=== PATIENT | male | born 1950 | race Caucasian/White ===

== ENCOUNTER 2020-05-12 16:19 | Emergency (ER) | payer OTHER ==
[~2020-05-12 16:19] MED LIST: Iopamidol-370 76% 500 ML 1 ML ONE
[2020-05-12 17:02] LABS: #Eosinphils 0.1 thou/uL (0.0-0.7); #Lymphocytes 1.4 thou/uL (1.20-3.40); #Monocytes 0.6 thou/uL (0.11-0.59); #Neutrophils 4.9 thou/uL (1.40-6.50); %Basophils 0.2 % (0.0-1.0); %Eosinophils 1.8 % (0.0-10.0); %Lymphocytes 20.2 % (21.0-51.0); %Neutrophils 68.8 % (42.0-75.0); Hemoglobin 14.4 g/dL (14.0-18.0); Mean Corpuscular HGB CONC 33.9 g/dL (32.0-36.0); Mean Corpuscular Hemoglobin 30.8 pg (27.0-31.0); Platelet Count 221 thou/uL (130-400); RBC Distribution Width 12.3 % (11.5-14.5); Red Blood Cell (RBC) Count 4.68 mill/uL (4.70-6.10); White Blood Cell (WBC) Count 7.1 thou/uL (4.8-10.8)
[2020-05-12 17:18] LABS: CRP (Inflammatory) 0.84 mg/dL (= or < 0.5); Magnesium 2.1 mg/dL (1.6-2.6)
--- NOTE | 2020-05-12 17:18 | RAD ---
XR Knee Lt 4 View STANDARD History: Pain Comparison: None. Findings: No acute fracture or malalignment. No significant joint effusion. Minimal enthesopathic changes of the quadriceps tendon. Impression: No acute osseous abnormality.
[2020-05-12 17:19] LABS: ALT (SGPT) 21 U/L (8-55); AST (SGOT) 14 U/L (5-34); Albumin 4.2 g/dL (3.4-4.8); Alkaline Phosphatase 76 U/L (40-110); Anion Gap 15 mmol/L (10-20); BUN (Urea Nitrogen) 19 mg/dL (8.4-25.7); Bilirubin, Total 0.3 mg/dL (0.2-1.2); Calc. Creatinine Clearance 0 mL/min (70-130); Calcium 8.9 mg/dL (7.8-10.44); Carbon Dioxide 25 mmol/L (23-31); Chloride 103 mmol/L (98-107); Estimated GFR-MDRD 59; Globulin 3.1 g/dL (2.4-3.5); Glucose 153 mg/dL (80-115); Potassium 3.5 mmol/L (3.5-5.1); Protein, Total 7.3 g/dL (5.8-8.1); Sodium 139 mmol/L (136-145)
[2020-05-12 18:53] LABS: Bilirubin Negative (Negative); Blood, Urine Negative (Negative); Clarity Clear (Clear); Glucose, Urine (Dipstick) Normal (Negative); Ketone, Urine Negative (Negative); Leukocyte Negative Leu/uL (Negative); Nitrite Negative (Negative); Protein, Urine (Dipstick) Negative (Neg-Trace); Urobilinogen Normal mg/dL (Less than 2); pH, Urine 6.5 (5.0-9.0)
[2020-05-12] MEDS ORDERED: Morphine 4 MG/ML VIAL ONE ×2 (19:10→20:14)
[2020-05-12] MEDS ORDERED: Ketorolac Tromethamine 30 MG/ML VIAL ONE (19:11)
--- NOTE | 2020-05-12 21:07 | CT ---
CTA Angio Aort Bilat Rnoff W History: Claudication Comparison: None. Findings: CT angiogram of the abdomen and pelvis was performed after the intravenous administration o f contrast. 3-D rendering provided. Lung bases are clear. No pericardial effusion. Liver is enlarged. Cholelithiasis without cholecystiti s. Spleen is unremarkable. Normal proximal small bowel rotation. The pancreas and right adrenal gland ar e normal. Left adrenal myelolipoma. No hydronephrosis. No abnormal enhancing renal mass. No retroperitoneal periaortic adenopathy. No dilated loops of large or small bowel. The appendix is visualized and is normal. No acute lumbar spine fracture. Osseous pelvis is intact. Celiac trunk and superior mesenteric arteries are patent. Aortic contour is nonaneurysmal. Right common iliac artery is patent. The internal and external iliac arteries are patent. Right femor al artery is patent. Right trifurcation is patent. Left common iliac artery is patent. Left internal and external iliac arteries are patent. Left femora l artery is patent. Left popliteal artery is patent. Trifurcation is patent proximally. No significant flow within the left anterior tibial artery 5 cm above the ankle nor dorsalis pedis arter y. The posterior tibial artery is patent. Impression: 1. No significant flow within the left anterior tibial artery originating 5 cm above the ankle withou t flow within the dorsalis pedis artery. Asymmetric left lower extremity soft tissue swelling. 2. No hemodynamic significant stenosis of either iliac vessels, common femoral, femoral, nor poplitea l arteries.
--- NOTE | 2020-05-12 21:13 | RAD ---
THREE VIEWS LUMBAR SPINE: 05/12/20 HISTORY: Left lower extremity pain for the past week. The patient states low back pain that radiates into the left buttock and extends to the left ankle. COMPARISON: None. FINDINGS: There are five nonribbearing lumbar type vertebral bodies. Vertebral body heights and intervertebral disc spaces are within normal limits. Scattered osteophytes are seen anteriorly. Mild facet degenerat lester changes are seen in the lower lumbar spine. No fracture or subluxation is seen. There is residual contrast in the visualized renal collecting systems, ureters, and urinary bladder related to recent contrasted study. IMPRESSION: Mild degenerative changes of the lumbar spine without fracture or subluxation. POS: MARS
--- NOTE | 2020-05-12 23:26 | ULT ---
US Venous Doppler Lt Unilat History: Pain and edema Comparison: None. Findings: Real-time grayscale, color and spectral analysis of the left lower extremity venous system was performed. The common femoral, femoral, proximal portions greater saphenous and deep femoral veins as well as the popliteal and posterior tibial veins were interrogated. Normal flow, augmentation and compression. Impression: No deep venous thrombosis.
[2020-05-12 23:29] LABS: INR-International Normal Ratio 1.1; PTT 26.6 sec (22.9-36.1); Prothrombin Time 13.7 sec (12.0-14.7)
--- NOTE | 2020-05-13 13:43 | EKG ---
Test Reason : Blood Pressure : / mmHG Vent. Rate : 078 BPM Atrial Rate : 078 BPM P-R Int : 186 ms QRS Dur : 082 ms QT Int : 388 ms P-R-T Axes : 028 013 041 degrees QTc Int : 442 ms Normal sinus rhythm Normal ECG Confirmed by MALINI RODRIGUEZ DO ([id number]), development editor ROBBIE LEACH ([id number] on 05/13/2020 1:43:26 PM Referred By: Confirmed By:MALINI RODRIGUEZ DO
== END 2020-05-13 04:00 | disposition short-term general hospital (02) ==
LOC: ERS 16:19
DX: M62.262 Nontraumatic ischemic infarction of muscle, left lower leg (principal); I73.9 Peripheral vascular disease, unspecified; Z87.891 Personal history of nicotine dependence
CPT/HCPCS: 36415; 51701; 72100; 75635; 80053; 81003; 83735; 85025; 85610; 85652; 85730; 86140; 93005; 96372; 96374; J1885; J2270; Q9967

== ENCOUNTER 2024-09-20 12:02 | Emergency (ER) | payer OTHER ==
[2024-09-20] MEDS ORDERED: Acetaminophen 500 MG TAB ONE (12:43)
[2024-09-20] MEDS ORDERED: Ketorolac Tromethamine 30 MG (1 mL) VIAL ONE (12:43)
[2024-09-20 13:11] LABS: #Basophils 0.03 10x3/uL (0.0-0.2); %Basophils 0.5 % (0.0-1.0); %Lymphocytes 19.9 % (21.0-51.0); %Monocytes 7.4 % (0.0-10.0); Hematocrit 35.9 % (42.0-52.0); Hemoglobin 12.2 g/dL (14.0-18.0); Mean Corpuscular Hemoglobin 30.1 pg (27.0-31.0); Mean Corpuscular Volume 88.6 fL (78.0-98.0); Mean Platelet Volume 10.1 fL (7.4-10.4); Platelet Count 223 10x3/uL (130-400); RBC Distribution Width 13.9 % (11.5-14.5); Red Blood Cell (RBC) Count 4.05 mill/uL (4.70-6.10)
[2024-09-20 13:29] LABS: ALT (SGPT) Less than 7 U/L (Less than 45); AST (SGOT) 12 U/L (11-34); Albumin 3.5 g/dL (3.1-4.5); Alkaline Phosphatase 88 U/L (40-110); Anion Gap 10 mmol/L (10-20); BUN (Urea Nitrogen) 19 mg/dL (8.4-25.7); Bilirubin, Total 0.4 mg/dL (0.3-1.2); Calc. Creatinine Clearance 0 mL/min (70-130); Calcium 8.5 mg/dL (7.8-10.44); Carbon Dioxide 28 mmol/L (23-31); Chloride 109 mmol/L (98-107); Estimated GFR 67; Globulin 3.2 g/dL (2.4-3.5); Glucose 106 mg/dL (83-110); Potassium 4.2 mmol/L (3.5-5.1); Protein, Total 6.7 g/dL (5.8-8.1); Sodium 143 mmol/L (136-145)
[2024-09-20 14:54] LABS: Bacteria/HPF 4+ HPF (None Seen); Bilirubin Negative (Negative); Blood, Urine 2+ (Negative); CAUTI Indications for Culture Dysuria,urgency,freq; Clarity Extra Turbid (Clear); Glucose, Urine (Dipstick) Normal (Negative); Ketone, Urine Trace mg/dL (Negative); Leukocyte 500 Leu/uL (Negative); Nitrite Negative (Negative); Protein, Urine (Dipstick) 300 mg/dL (Neg-Trace); RBC/HPF 21-50 HPF (0-3); Specific Gravity, Urine 1.022 (1.002-1.036); Squamous Epithelial None Seen HPF (0-3); WBC/HPF Greater than 50 HPF (0-3)
[2024-09-20 14:56] LABS: Urine Culture Reflex Yes Yes
== END 2024-09-20 16:16 ==
LOC: ERS 12:02 → EEVIPCON 12:02 → ERS 16:16
DX: N39.0 Urinary tract infection, site not specified (principal); N43.3 Hydrocele, unspecified; E11.9 Type 2 diabetes mellitus without complications; I25.10 Atherosclerotic heart disease of native coronary artery without angina pectoris; E78.5 Hyperlipidemia, unspecified; Z86.73 Personal history of transient ischemic attack (TIA), and cerebral infarction without residual deficits; Z87.891 Personal history of nicotine dependence
CPT/HCPCS: 36415; 51701; 76870; 80053; 81001; 83605; 85025; 87077; 87086; 87186; 93976; 96372; J1885